=== PATIENT | male | born 1965 | race Two or more races ===

== ENCOUNTER 2023-01-10 18:25 | Emergency (ER) | payer SELFPAY ==
[~2023-01-10] VITALS: Ht 170.2 cm; Wt 79.5 kg
[2023-01-10 19:30] VITALS: BP 139/86
== END 2023-01-10 22:03 | disposition home or self-care (01) ==
LOC: EMS 18:27
DX: F41.9 Anxiety disorder, unspecified (principal); F17.210 Nicotine dependence, cigarettes, uncomplicated
CPT/HCPCS: 93005; 99283